=== PATIENT | female | born 2000 | race American Indian/Alaskan Native ===

== ENCOUNTER 2020-03-09 15:11 | Outpatient (CLI) | payer OTHER ==
[2020-03-09] MEDS ORDERED: LACTATED RINGERS 1,000 ML IV SCH (17:00)
--- NOTE | 2020-03-09 18:20 | Ultrasound Report ---
Limited OB ultrasound. HISTORY: Evaluate JOSE CARLOS. COMPARISON: 03/05/2020. FINDINGS: Limited obstetrical ultrasound was performed. A single viable intrauterine in the cephalic position has heart tones of 117 bpm. Amniotic fluid is now normal measuring 18.8 cm. IMPRESSION: Normal amniotic fluid index measuring 18.8 cm. Signer Name: Fermín Neumann MD Signed: 03/09/2020 6:15 PM Workstation Name: [id number]
[2020-03-09 19:07] VITALS: BP 108/63
== END 2020-03-09 18:30 | disposition home or self-care (01) ==
LOC: TRG 15:11 → APU 15:18 → TRG 18:30
PROVIDERS: ATTEND Obstetrics & Gynecology
DX: O26.893 Other specified pregnancy related conditions, third trimester (principal); R51 Headache; M54.9 Dorsalgia, unspecified; O47.1 False labor at or after 37 completed weeks of gestation; Z3A.39 39 weeks gestation of pregnancy
CPT/HCPCS: 59025; 76815; 96360; 96361; J7120

== ENCOUNTER 2020-03-19 19:39 | Observation (INO) | payer OTHER ==
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
[2020-03-19] MEDS ORDERED: LACTATED RINGERS 1,000 ML IV ONE (23:16)
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
--- NOTE | 2020-03-20 00:49 | Ultrasound Report ---
ULTRASOUND BIOPHYSICAL PROFILE INDICATION / CLINICAL INFORMATION: Limited study was requested to evaluate placenta and obtain BPP COMPARISON: Obstetrical ultrasound, 03/09/2020 FINDINGS: BREATHING MOVEMENT = 2 GROSS BODY MOVEMENT = 2 TONE = 2 QUALITATIVE AMNIOTIC FLUID VOLUME = 2 TOTAL BIOPHYSICAL SCORE = 03/05 AMNIOTIC FLUID INDEX (cm) = 9.0 PRESENTATION: Cephalic. HEART RATE (beats per minute): 137 The placenta is anterior. IMPRESSION: 1. biophysical profile = 03/05 Signer Name: Mary Naranjo MD Signed: 03/20/2020 12:45 AM Workstation Name: [id number]
[2020-03-20 01:02] LABS: Basophils % (Auto) 0.3 % (0.0-1.8); Eosinophils # (Auto) 0.2 K/mm3 (0.0-0.4); Eosinophils % (Auto) 1.9 % (0.0-4.3); Hematocrit 32.3 % (30.3-42.9); Hemoglobin 11.2 gm/dl (10.1-14.3); Lymphocytes # (Auto) 2.4 K/mm3 (1.2-5.4); Lymphocytes % (Auto) 26.4 % (13.4-35.0); Mean Corpuscular HGB Conc 35 % (30-34); Mean Corpuscular Volume 84 fl (79-97); Monocytes # (Auto) 0.8 K/mm3 (0.0-0.8); Monocytes % (Auto) 8.6 % (0.0-7.3); Platelet Count 183 K/mm3 (140-440); Red Blood Count 3.86 M/mm3 (3.65-5.03); Red Cell Distribution Width 14.6 % (13.2-15.2)
[2020-03-20 01:26] LABS: Hepatitis C Virus Antibody Non-Reactive (NonReactive)
[2020-03-20 01:34] LABS: Amphetamine Screen,Urine PRESUMPTIVE NEGATIVE; Benzodiazepines Screen,Urine PRESUMPTIVE NEGATIVE; Cannabinoid Screen,Urine PRESUMPTIVE NEGATIVE; Cocaine Screen,Urine PRESUMPTIVE NEGATIVE; Methadone Screen,Urine PRESUMPTIVE NEGATIVE; Opiate Screen,Urine PRESUMPTIVE NEGATIVE
[2020-03-20 01:41] LABS: HCG,Quantitative 25554 mIU/mL (0-4)
[2020-03-20 01:45] LABS: Bacteria,Urine 1+ /HPF (Negative); Bilirubin,Urine NEG (Negative); Blood,Urine NEG (Negative); Color,Urine Straw (Yellow); Protein,Urine <15 mg/dL mg/dL (Negative); Urobilinogen,Urine < 2.0 mg/dL (<2.0)
[2020-03-20] MEDS ORDERED: LACTATED RINGERS 1,000 ML ONE (05:24)
[2020-03-20] MEDS ORDERED: LACTATED RINGERS 1,000 ML IV SCH (06:00)
--- NOTE | 2020-03-20 08:23 | Event Note ---
Date: 03/20/20 No cervical change; patient is not in active labor at this time. Category 1 FHR tracing. BPP 03/05. JOSE CARLOS 9.[address] Salamanca re: no cervical change, BPP 03/05, results of US, category [address] Salamanca states to discharge patient to home and have her return tomorrow at 5:00 PM for induction of labor. Discussed with this plan with patient and she states she is in agreement. Discussed with patient signs of labor, warning signs of late , and daily movement counting.
--- NOTE | 2020-03-20 08:27 | Discharge Summary ---
Providers - Providers Date of Admission: 03/20/20 03:30 Date of discharge: 03/20/20 Attending physician: CRISTOFER BROWER MD Primary care physician: CRISTOFRE BROWER MD Hospitalization Reason for admission: other ( at 41 weeks gestation.) Delivery: other (Undelivered.) Pertinent studies: Labs, US, EFM. Hospital course: Stable hospital course. Condition at discharge: Good Disposition: DC-01 TO HOME OR SELFCARE Plan - Provider Discharge Summary Additional instructions: Count movements daily; return to hospital if any decresed movements. Call your doctor immediately for: * Fever > 100.5 * Heavy vaginal bleeding ( >1 pad per hour) * Severe persistent headache * Shortness of breath * Reddened, hot, painful area to leg or breast - Follow up plan Follow up: IDRIS FOLEY MD [Staff Physician] - 03/21/20
[2020-03-20 08:32] VITALS: BP 106/68
[2020-03-20] MEDS ORDERED: PRENATAL VIT27-FE FUMARATE-FOLIC ACID VIT TAB PO SCH (10:00)
== END 2020-03-20 09:36 | disposition home or self-care (01) ==
LOC: TRG 19:39 → APU 19:40 → TRG 03-20 03:24 → LD 03-20 03:30
PROVIDERS: ADMIT Obstetrics & Gynecology; ATTEND Obstetrics & Gynecology
DX: O62.9 Abnormality of forces of labor, unspecified (principal); O36.8130 Decreased fetal movements, third trimester, not applicable or unspecified; O48.0 Post-term pregnancy; Z87.828 Personal history of other (healed) physical injury and trauma; Z3A.41 41 weeks gestation of pregnancy
CPT/HCPCS: 36415; 59025; 76815; 76819; 80307; 81001; 83036; 84702; 85025; 86592; 86706; 86762; 86803; 86850; 86900; 86901; 87086; 87806; 96360; 96361; G0378; J7120; 76816

== ENCOUNTER 2020-03-22 13:03 | Inpatient (IN) | payer OTHER ==
[2020-03-22] MEDS ORDERED: LACTATED RINGERS 1,000 ML ONE ×2 (13:45→15:38)
[2020-03-22 14:46] LABS: Basophils % (Auto) 0.2 % (0.0-1.8); Eosinophils # (Auto) 0.1 K/mm3 (0.0-0.4); Eosinophils % (Auto) 0.8 % (0.0-4.3); Hematocrit 33.1 % (30.3-42.9); Lymphocytes # (Auto) 1.1 K/mm3 (1.2-5.4); Lymphocytes % (Auto) 11.8 % (13.4-35.0); Mean Corpuscular HGB Conc 33 % (30-34); Mean Corpuscular Volume 84 fl (79-97); Monocytes # (Auto) 0.6 K/mm3 (0.0-0.8); Monocytes % (Auto) 6.6 % (0.0-7.3); Platelet Count 182 K/mm3 (140-440); Red Blood Count 3.95 M/mm3 (3.65-5.03); Red Cell Distribution Width 14.3 % (13.2-15.2)
[2020-03-22] MEDS ORDERED: MINERAL OIL 30 ML ORAL LIQD PO PRN (15:52)
[2020-03-22] MEDS ORDERED: BUTORPHANOL 2 MG/1 ML INJ IV PRN (15:52)
[2020-03-22] MEDS ORDERED: TERBUTALINE 1 MG/1 ML INJ IVP PRN (15:52)
[2020-03-22] MEDS ORDERED: fentaNYL 100 MCG/2 ML INJ IV PRN (15:52)
[2020-03-22] MEDS ORDERED: ePHEDrine SULFATE 50 MG/1 ML INJ IV PRN ×2 (15:52→17:12)
[2020-03-22] MEDS ORDERED: ACETAMINOPHEN 325 MG TAB PO PRN (15:52)
[2020-03-22] MEDS ORDERED: AMPICILLIN/NS 2 GM/100 ML 2 GM/100 ML BAG IV ONE (15:52)
[2020-03-22] MEDS ORDERED: TERBUTALINE 1 MG/1 ML INJ SUB-Q PRN (15:52)
[2020-03-22] MEDS ORDERED: LIDOCAINE (2%) 20 MG/1 ML VIAL 20 ML MDV INFILTRATI ONE (15:52)
[2020-03-22] MEDS ORDERED: OXYTOCIN 20 UNIT/1000ML DRIP 20 UNITS/1,000 ML BAG IV SCH (16:00)
[2020-03-22] MEDS: LACTATED RINGERS 1,000 ML IV SCH ×2 (16:00→16:58)
[2020-03-22] MEDS ORDERED: OXYTOCIN DRIP 30 UNITS/500 ML BAG IV SCH ×2 (16:00)
[2020-03-22] MEDS ORDERED: NALOXONE 2 MG/2 ML INJ IV PRN (17:12)
--- NOTE | 2020-03-22 17:13 | Anesthesia Consultation ---
Anesthesia Consult and Med Hx Date of service: 03/22/20 - Airway Anesthetic Teeth Evaluation: Good ROM Head & Neck: Adequate Mental/Hyoid Distance: Adequate Mallampati Class: Class II Intubation Access Assessment: Probably Good - Pulmonary Exam CTA: Yes - Cardiac Exam Cardiac Exam: RRR - Pre-Operative Health Status ASA Pre-Surgery Classification: ASA3 Proposed Anesthetic Plan: Epidural - Pulmonary Hx Smoking: Yes Hx Asthma: No COPD: No Hx Pneumonia: No - Cardiovascular System Hx Hypertension: No - Central Nervous System Hx Seizures: No Hx Psychiatric Problems: No - Endocrine Hx Renal Disease: No Hx End Stage Renal Disease: No Hx Hypothyroidism: No Hx Hyperthyroidism: No - Hematic Hx Anemia: No Hx Sickle Cell Disease: No - Other Systems Hx Alcohol Use: No Hx Obesity: Yes
--- NOTE | 2020-03-22 17:15 | Progress Note ---
Labor Epidural - Labor Epidural Start Time: 16:45 Stop Time: 17:02 Performed by:: LESLI ARELLANO Procedure: Patient is requesting epidural for labor pain. H&P, and labs reviewed. Procedure explained, questions answered, consent obtained. Patient in sitting position with blood pressure cuff and pulse ox on and working. Timeout performed immediately before start of procedure. Sterile betadine prep/drape. 3 mL 1% lidocaine skin wheal at L[3]-L[4]. 18-gauge Touhy epidural needle advanced to [id number] with saline at 10 cm. Epidural dexmedetomidine [30] mcg administered. Epidural catheter advanced to 15 cm, negative aspiration for blood and csf, negative test dose 3 ml 1.5% lidocaine with epinephrine. Sterile steri-strips and tegaderm applied, followed by tape reinforcement. Patient tolerated procedure well.
[2020-03-22] MEDS ORDERED: AMPICILLIN/NS 1 GM/50 ML 1 GM/50 ML BAG IV SCH (18:00)
[2020-03-22] MEDS ORDERED: DEXMEDETOMIDINE 200 MCG/2 ML VIAL IV ONE (19:48)
[2020-03-22] MEDS ORDERED: AMPICILLIN 1 GM in SODIUM CHLORIDE 0.9% 50 ML IV SCH (20:00)
--- NOTE | 2020-03-22 20:12 | Anesthesia Consultation ---
Anesthesia Consult and Med Hx Date of service: 03/22/20 - Airway Anesthetic Teeth Evaluation: Good ROM Head & Neck: Adequate Mental/Hyoid Distance: Adequate Mallampati Class: Class II Intubation Access Assessment: Probably Good - Pulmonary Exam CTA: Yes - Cardiac Exam Cardiac Exam: RRR - Pre-Operative Health Status ASA Pre-Surgery Classification: ASA2 Proposed Anesthetic Plan: Epidural - Pulmonary Hx Smoking: No Hx Asthma: No COPD: No Hx Pneumonia: No - Cardiovascular System Hx Hypertension: No - Central Nervous System Hx Seizures: No Hx Psychiatric Problems: No - Endocrine Hx Renal Disease: No Hx End Stage Renal Disease: No Hx Hypothyroidism: No Hx Hyperthyroidism: No - Hematic Hx Anemia: No Hx Sickle Cell Disease: No - Other Systems Hx Alcohol Use: No Hx Obesity: No
--- NOTE | 2020-03-22 20:13 | Progress Note ---
Labor Epidural - Labor Epidural Start Time: 19:49 Stop Time: 20:04 Performed by:: LESLI ARELLANO Procedure: Patient is requesting epidural for labor pain. H&P, and labs reviewed. Procedure explained, questions answered, consent obtained. Patient in sitting position with blood pressure cuff and pulse ox on and working. Timeout performed immediately before start of procedure. Sterile betadine prep/drape. 3 mL 1% lidocaine skin wheal at L[3]-L[4]. 18-gauge Touhy epidural needle advanced to [id number] with saline at 5 cm. 27-gauge spinal needle advanced until clear, free-flowing CSF. Intrathecal dexmedetomidine [5] mcg administered and needle removed. Epidural catheter advanced to [12] cm, negative aspiration for blood and csf, negative test dose 3 ml 1.5% lidocaine with epinephrine. Sterile steri-strips and tegaderm applied, followed by tape reinforcement. Patient tolerated procedure well. Jason CLAY
[2020-03-22] MEDS: fentaNYL-BUPIV 2 MCG/ML-0.125% 200 MCG/100 ML BAG EPIDURAL SCH (20:29)
[2020-03-22] MEDS ORDERED: BUPIVACAINE/PF (0.25%) 2.5 MG/ML 10 ML VIAL INFILTRATI ONE (23:01)
[2020-03-23] MEDS ORDERED: AMPICILLIN/NS 1 GM/50 ML 1 GM/50 ML BAG IV SCH (03:00)
[2020-03-23] MEDS: LACTATED RINGERS 1,000 ML IV SCH (08:06)
--- NOTE | 2020-03-23 08:10 | History and Physical Report ---
History of Present Illness Date of admission: 03/22/20 13:06 Chief complaint: at 41 2/7 weeks EGA for IOL History of present illness: 19 y/o G1 today at 41 2/7 weeks with late and sporadic care admitted for IOL. There are no records for me to review. Past History Past Medical History: No medical history Past Surgical History: No surgical history Social history: no significant social history Family history: no significant family history Medications and Allergies Allergies Allergy/AdvReac Type Severity Reaction Status Date / Time No Known Allergies Allergy Verified 03/09/20 16:06 Home Medications Medication Instructions Recorded Confirmed Last Taken Type Vit-Fe Fumar-FA [ 1 tab PO QDAY 03/22/20 03/22/20 Unknown History Vitamin] Active Meds: Active Medications Acetaminophen (Tylenol) 650 mg PO Q4H PRN PRN Reason: Pain, Mild (1-3) Butorphanol Tartrate (Stadol) 1 mg IV Q2H PRN PRN Reason: Pain, Moderate(4-6) LABOR PAIN Ephedrine Sulfate (Ephedrine Sulfate) 10 mg IV Q2M PRN PRN Reason: Hypotension Ephedrine Sulfate (Ephedrine Sulfate) 10 mg IV Q2M PRN PRN Reason: Hypotension Fentanyl (Sublimaze) 100 mcg IV Q2H PRN PRN Reason: Pain,Severe (7-10) LABOR PAIN Last Admin: 03/22/20 16:05 Dose: 100 mcg Documented by: Oxytocin/Sodium Chloride (Pitocin/Ns 20 Unit/1000ml Drip) 20 units in 1,000 mls @ 125 mls/hr IV DIRECT MI Oxytocin/Sodium Chloride (Pitocin/Ns 30 Unit/500ml) 30 units in 500 mls @ 1 mls/hr IV TITR MI; Protocol Oxytocin/Sodium Chloride (Pitocin/Ns 30 Unit/500ml) 30 units in 500 mls @ 2 mls/hr IV TITR MI; Protocol Last Admin: 03/22/20 22:14 Dose: 2 ml/hr, 2 mls/hr Documented by: Lactated Ringer's (Lactated Ringers) 1,000 mls @ 125 mls/hr IV DIRECT MI Last Admin: 03/22/20 16:58 Dose: 125 mls/hr Documented by: Fentanyl/Bupivacaine/Sodium Chlor (Fentanyl-Bupiv 2 Mcg/Ml-0.125%) 200 mcg in 100 mls @ 12 mls/hr EPIDURAL TITR MI; Protocol Last Admin: 03/22/20 20:29 Dose: 12 mls/hr Documented by: Ampicillin Sodium (Ampicillin/Ns 1 Gm/50 Ml) 1 gm in 50 mls @ 100 mls/hr IV Q4HR MI; Protocol Mineral Oil (Mineral Oil) 30 ml PO QHS PRN PRN Reason: Constipation Naloxone HCl (Naloxone) 0.2 mg IV Q5M PRN PRN Reason: Respiratory sedation Terbutaline Sulfate (Brethine) 0.25 mg SUB-Q ONCE PRN PRN Reason: Hyperstimulation/Hypertonicity Terbutaline Sulfate (Brethine) 0.25 mg IVP ONCE PRN PRN Reason: Hyperstimulation/Hypertonicity Review of Systems All systems: negative (usual symptoms) Exam - Constitutional Vitals: Temp Pulse Resp BP Pulse Ox 98.3 F 80 98/55 03/23/20 04:31 03/23/20 06:31 03/23/20 06:31 General appearance: Present: mild distress - Respiratory Respiratory effort: normal - Cardiovascular Heart rate: 80 Rhythm: regular - Extremities Extremities: No edema - Abdominal General gastrointestinal: Present: soft, non-tender - Psychiatric Psychiatric: appropriate mood/affect - Neurologic Neurologic: moves all extremities, gait normal (Cervix was 2 cm/ 50 VTX -2 station per nurse exam on admission) Results - Labs CBC & Chem 7: 03/22/20 14:20 Labs: Abnormal lab results 03/22/20 Range/Units 14:20 Lymph % (Auto) 11.8 L (13.4-35.0) % Lymph # 1.1 L (1.2-5.4) K/mm3 Seg Neutrophils % 80.6 H (40.0-70.0) % Assessment and Plan IMP: 1) 41 2/7 weeks in early labor 2) Poor compliance with care 3) Otherwise uncomplicated course 4) positive GBS PLAN: Anticipate vaginal delivery Ampicillin for +GBS
[2020-03-23] MEDS: AMPICILLIN/NS 1 GM/50 ML 1 GM/50 ML BAG IV SCH ×3 (08:13→16:13)
[2020-03-23] MEDS ORDERED: ONDANSETRON 4 MG/2 ML INJ ONE (09:24)
[2020-03-23] MEDS ORDERED: ONDANSETRON 4 MG/2 ML INJ IM ONE (09:27)
[2020-03-23] MEDS ORDERED: BUPIVACAINE/PF (0.25%) 2.5 MG/ML 10 ML VIAL INFILTRATI ONE ×3 (09:36→19:06)
--- NOTE | 2020-03-23 09:41 | Progress Note ---
Assessment and Plan A: IUP @ 41 4/7 Weeks Category I Tracing Active Labor Poor Pain Control Vomiting GBS Unknown P: Consult Anesthesia for Epiduiral ReDose Zofran 4mg IV Continue GBS Prophylaxis Continue Pitocin Augmentation Multiple Maternal Position Changes Subjective - Subjective Date of service: 03/23/20 Patient reports: movement normal, contractions, other (Complains of poor pain control under epidural anesthesia) Objective - Vital Signs Vital Signs: Vital Signs - 12hr 03/22/20 03/22/20 03/22/20 21:50 22:30 23:11 Temperature Pulse Rate 68 78 71 Blood Pressure 102/51 101/65 114/73 03/22/20 03/23/20 03/23/20 23:50 00:30 00:45 Temperature 98.3 F Pulse Rate 78 67 Blood Pressure 99/57 97/60 03/23/20 03/23/20 03/23/20 01:10 01:50 02:10 Temperature Pulse Rate 74 85 73 Blood Pressure 102/62 89/53 105/59 03/23/20 03/23/20 03/23/20 02:31 03:10 03:51 Temperature Pulse Rate 90 84 76 Blood Pressure 99/58 111/65 113/65 03/23/20 03/23/20 03/23/20 04:30 04:31 05:10 Temperature 98.3 F Pulse Rate 63 72 Blood Pressure 108/57 106/61 03/23/20 03/23/20 03/23/20 05:50 06:31 08:30 Temperature Pulse Rate 92 H 80 107 H Blood Pressure 98/52 98/55 115/75 - Exam Breasts: normal Cardiovascular: Regular rate Lungs: Normal air movement Abdomen: Present: normal appearance, soft Uterus: Present: normal, firm, fundal height above umbilicus FHR: category 1 Uterine Contraction Monitor Mode: External Cervical Dilatation: 8 (leaking a moderate amount of clear fluid) Cervical Effacement Percentage: 80 station: -3 Uterine Contraction Frequency (min): 1-2 Uterine Contraction Pattern: Regular Uterine Tone Measurement Phase: Resting Uterine Contraction Intensity: Moderate Extremities: normal - Labs Labs: Abnormal Labs 03/22/20 14:20 Lymph % (Auto) 11.8 L Lymph # 1.1 L Seg Neutrophils % 80.6 H Laboratory Results - last 24 hr 03/22/20 03/22/20 14:20 14:20 WBC 9.3 RBC 3.95 Hgb 11.0 Hct 33.1 MCV 84 MCH 28 MCHC 33 RDW 14.3 Plt Count 182 Lymph % (Auto) 11.8 L [place] % (Auto) 6.6 Eos % (Auto) 0.8 Baso % (Auto) 0.2 Lymph # 1.1 L [place] # 0.6 Eos # 0.1 Baso # 0.0 Seg Neutrophils % 80.6 H Seg Neutrophils # 7.5 Blood Type O POSITIVE Antibody Screen Negative
[2020-03-23] MEDS: fentaNYL-BUPIV 2 MCG/ML-0.125% 200 MCG/100 ML BAG EPIDURAL SCH (11:07)
--- NOTE | 2020-03-23 13:21 | Progress Note ---
Assessment and Plan A: IUP @ 41 4/7 Weeks Category II Tracing Active Labor GBS Unknown P: Internalx x2 Continue GBS Prophylaxis Pitocin Augmentation Discontinued Multiple Maternal Position Changes Subjective - Subjective Date of service: 03/23/20 Patient reports: movement normal, other (Resting comfortably/well under epidural anesthesia) Objective - Vital Signs Vital Signs: Vital Signs - 12hr 03/23/20 03/23/20 03/23/20 01:50 02:10 02:31 Temperature Pulse Rate 85 73 90 Blood Pressure 89/53 105/59 99/58 03/23/20 03/23/20 03/23/20 03:10 03:51 04:30 Temperature Pulse Rate 84 76 63 Blood Pressure 111/65 113/65 108/57 03/23/20 03/23/20 03/23/20 04:31 05:10 05:50 Temperature 98.3 F Pulse Rate 72 92 H Blood Pressure 106/61 98/52 03/23/20 03/23/20 03/23/20 06:31 08:30 09:46 Temperature Pulse Rate 80 107 H 93 H Blood Pressure 98/55 115/75 119/70 03/23/20 03/23/20 03/23/20 09:50 10:02 10:31 Temperature 98.6 F Pulse Rate 97 H 77 Blood Pressure 116/80 117/74 03/23/20 03/23/20 03/23/20 11:10 11:51 11:58 Temperature Pulse Rate 91 H 81 74 Blood Pressure 113/75 116/71 120/77 03/23/20 03/23/20 03/23/20 12:00 12:05 12:07 Temperature 98.2 F Pulse Rate 72 67 67 Blood Pressure 115/67 108/66 03/23/20 03/23/20 03/23/20 12:14 12:20 12:38 Temperature Pulse Rate 73 75 81 Blood Pressure 120/78 120/81 112/68 03/23/20 03/23/20 12:53 13:11 Temperature Pulse Rate 87 80 Blood Pressure 113/70 96/54 - Exam Breasts: normal Cardiovascular: Regular rate Lungs: Normal air movement Abdomen: Present: normal appearance, soft FHR: category 2 FHR comments: FHR: 120, moderate varability, -accels, +repetitive early decels Uterine Contraction Monitor Mode: Internal Cervical Dilatation: 9 Cervical Effacement Percentage: 100 station: -1 Uterine Contraction Frequency (min): 1-3 Uterine Contraction Pattern: Regular Uterine Tone Measurement Phase: Resting Uterine Contraction Intensity: Moderate Extremities: normal - Labs Labs: Abnormal Labs 03/22/20 14:20 Lymph % (Auto) 11.8 L Lymph # 1.1 L Seg Neutrophils % 80.6 H Laboratory Results - last 24 hr 03/22/20 03/22/20 14:20 14:20 WBC 9.3 RBC 3.95 Hgb 11.0 Hct 33.1 MCV 84 MCH 28 MCHC 33 RDW 14.3 Plt Count 182 Lymph % (Auto) 11.8 L [place] % (Auto) 6.6 Eos % (Auto) 0.8 Baso % (Auto) 0.2 Lymph # 1.1 L [place] # 0.6 Eos # 0.1 Baso # 0.0 Seg Neutrophils % 80.6 H Seg Neutrophils # 7.5 Blood Type O POSITIVE Antibody Screen Negative
[2020-03-23] MEDS ORDERED: SODIUM CHLORIDE 0.9% 1000 ML 1,000 ML VG SCH (14:00)
[2020-03-23] MEDS ORDERED: LACTATED RINGERS 1,000 ML ONE (15:01)
[2020-03-23] MEDS ORDERED: LIDOCAINE (2%) 20 MG/1 ML VIAL 20 ML MDV INFILTRATI ONE (17:56)
[2020-03-23] MEDS ORDERED: FAMOTIDINE 20 MG/2 ML INJ IV ONE ×2 (18:38→22:22)
[2020-03-23] MEDS ORDERED: METOCLOPRAMIDE 10 MG/2 ML INJ IV ONE ×2 (18:38→22:22)
[2020-03-23] MEDS ORDERED: BICITRA ORAL LIQD 30ML PO ONE ×2 (18:38→22:22)
--- NOTE | 2020-03-23 18:58 | Event Note ---
Date: 03/23/20 Pt has been completely dilated for 3 hrs. FHTs have remained reactive and reassuring. Vacuum applied x3 with minimal descent of vertex which remained in straight occiput posterior position, +2-3 station. Midline episiotomy was performed after second vacuum application. PLAN: now
[2020-03-23] MEDS ORDERED: ceFAZolin/Water 2 GM/20 ML 2 GM/20 ML SYRINGE IV NR (19:00)
[2020-03-23] MEDS ORDERED: LACTATED RINGERS 1,000 ML IV SCH ×2 (19:00→23:00)
[2020-03-23] MEDS ORDERED: OXYTOCIN 20 UNIT/1000ML DRIP 20 UNITS/1,000 ML BAG IV SCH ×2 (19:00→23:00)
[2020-03-23] MEDS ORDERED: BUPIVACAINE/PF (0.5%) 5 MG/1 ML 10 ML VIAL INFILTRATI ONE (19:09)
[2020-03-23] MEDS ORDERED: ceFAZolin/STERILE WATER 2 GM/20 ML SYRINGE IV ONE (19:20)
[2020-03-23] MEDS ORDERED: KETOROLAC 30 MG/1 ML INJ IV PRN (19:46)
[2020-03-23] MEDS ORDERED: oxyCODONE /ACETAMINOPHEN 5-325MG TAB PO PRN ×2 (19:46)
[2020-03-23] MEDS ORDERED: NalbUPHINE 10 MG/1 ML INJ IV PRN (19:46)
[2020-03-23] MEDS ORDERED: MORPHINE 2 MG/1 ML INJ IV PRN (19:47)
[2020-03-23] MEDS ORDERED: ONDANSETRON 4 MG/2 ML INJ IV PRN ×2 (19:48→22:22)
[2020-03-23] MEDS ORDERED: KETAMINE/STERILE WATER 50 MG/ML SYRINGE ONE (19:54)
[2020-03-23] MEDS ORDERED: propofoL 200 MG/20 ML VIAL IV ONE (19:55)
[2020-03-23] MEDS ORDERED: MIDAZOLAM 5 MG/5 ML INJ MDV IV ONE (19:57)
[2020-03-23] MEDS ORDERED: LIDOCAINE 2%/EPINEPHRINE 1:200,000 VIAL (20 ML) INFILTRATI ONE (19:59)
[2020-03-23] MEDS ORDERED: KETOROLAC 30 MG/1 ML INJ ONE (20:00)
[2020-03-23] MEDS ORDERED: ACETAMINOPHEN 500 MG TAB PO SCH (20:00)
[2020-03-23] MEDS ORDERED: dexAMETHasone 20 MG/5 ML VIAL ONE (20:10)
[2020-03-23] MEDS ORDERED: BUPIVACAINE/PF (0.5%) 5 MG/1 ML 30 ML VIAL INFILTRATI ONE (20:10)
[2020-03-23 20:27] LABS: Cord Venous Blood HCO3 21.2; Cord Venous Oxyhemoglobin 20.5
[2020-03-23 20:31] LABS: Cord Venous Blood PO2 < 21
--- NOTE | 2020-03-23 21:11 | Post Anesthesia Evaluation ---
- Post Anesthesia Evaluation Patient Participated: Yes Airway Patent: Yes Stable Respiratory Function: Yes Nausea/Vomiting: No Temp > 96.8F: Yes Pain Manageable: Yes Adequeate Hydration: Yes Anesthesia Complications: No Block Receding Appropriately: Yes
--- NOTE | 2020-03-23 21:12 | Progress Note ---
Regional Anesthesia Block - Regional Anesthesia Block Start Time: 21:11 Stop Time: 21:20 Performed By:: LESLI ARELLANO Procedure: U/S guided bilateral tap block performed for post-operative pain requested by Dr. Salamanca. H&P & labs reviewed. Procedure explained, questions answered, consent obtained. Patient in the supine position with ekg, blood pressure cuff and pulse ox on and working in PACU. Timeout performed immediately before start of procedure. Probe placed in the mid-axillary line and the external oblique, internal oblique, and transverse abdominus muscles identified. Skin was cleansed with 0.5% Chlorahexadine and allowed to dry. A 4" 20 G Benjamin echogenic needle was advanced in plane until the tip was in the fascial plane between the internal oblique and the transverse abdominus. After negative aspiration 35 ml/side of [30 ml 0.5% Bupivacaine], [50 mcg dexmedetomidine], [8 mg dexamethasone], and [40 ml sterile saline] was injected in 5 ml increments with negative aspiration in between. Patient tolerated procedure well. Jason CLAY
[2020-03-23] MEDS ORDERED: oxyCODONE 5 MG TAB PO PRN ×2 (21:27)
--- NOTE | 2020-03-23 22:19 | Operative Report ---
Operative Report Operative Report: Pre-Op Dx: 1) at 41 2/7 weeks 2) Persistent occiput posterior 3) Failure of Descent 4) Failed vacuum delivery Post-Op Dx: same Procedure: Primary Lower Segment Transverse Surgeon: Rajat Salamanca MD Jewel Stripper: OR staff Anesthesia: Epidural Tubes/Drains: Jolly EBL: 500 ml Findings: Female infant-- occiput posterior--3502 grams APGARS: Thin non-particulate meconium Venous Cord pH= 7.17 Operative note The patient was taken to the operating room where the epidural anesthetic was reinjected to obtain a satisfactory level for Section. The patient was then placed in the supine position and prepped and draped in the usual fashion. The skin and subcutaneous tissue at the site of the proposed Pfannenstiel skin incision were injected using approximately 10 mL of 0.25% Marcaine. At this site a Pfannenstiel incision was made approximately 5 cm above the symphysis pubis. This incision was carried through the subcutaneous tissue and fascia. The fascia was from the underlying abdominal muscles using both sharp and blunt dissection. The rectus muscles were divided in the midline and the peritoneum was exposed. Peritoneum was incised transversely and the abdominal cavity was entered without difficulty. After a bladder retractor was inserted the lower uterine segment was exposed. The vesicouterine peritoneum was incised transversely and the bladder was from the lower uterine segment using blunt dissection. A 4 cm transverse incision was made in the lower uterine segment. This incision was carried laterally and upward using blunt dissection. The amniotic membranes were then incised and non-particulate meconium stained fluid was noted. The infant's head was then lifted up out of the pelvis and was delivered into the uterine incision using the vacuum extractor which was applied for exactly 18 seconds. After the mouth and nose were thoroughly suctioned using the bulb suction the remainder of the delivery occurred without difficulty. After the umbilical cord was doubly clamped and cut the infant was handed to the nursery staff. scores were 1 at 1 minute, 4 at 5 minutes, and 7 at 10 minutes. Cord blood was then obtained for routine laboratory studies and pH. The pH was subsequently reported as 7.17. Next the placenta was expressed from the uterine cavity. The placenta and umbilical cord were both grossly normal. Both visual and digital inspection of the uterine cavity revealed no evidence of retained placenta or membranes. After the uterus had contracted in a satisfactory manner the uterine incision was closed in 2 layers. Both layers were running locking stitches of 0 Vicryl. After adequate hemostasis was obtained the pelvis was irrigated with sterile normal saline. Examination of the pelvis then revealed the uterus fallopian tubes ovaries and all visible peritoneal surfaces to be grossly normal. After absolute hemostasis was again assured the peritoneum was closed using a running stitch of 2-0 Vicryl. The rectus muscles were reapproximated in the midline using a running stitch of 2-0 chromic catgut. The cut edges of the rectus muscle which were partially transected to enlarge the operative field were reapproximated using figure of 8 stitches of 2-0 chromic. The fascia was reapproximated using 2 running stitches of 0 Vicryl which met in the midline. The subcutaneous tissue was thoroughly irrigated using sterile normal saline and was reapproximated using a running stitch of 3-0 chromic catgut. The skin was reapproximated using skin caleb. The estimated blood loss of the procedure was 500 mL. Sponge needle and instrument counts were correct. The patient tolerated the procedure well and was returned to the recovery room awake and in good condition.
[2020-03-23] MEDS ORDERED: NALOXONE 0.4 MG/1 ML INJ IV PRN (22:22)
[2020-03-23] MEDS ORDERED: PROMETHAZINE 25 MG RECT SUPP PR PRN (22:22)
[2020-03-23] MEDS ORDERED: PROMETHAZINE 25 MG TAB PO PRN (22:22)
[2020-03-23] MEDS: MORPHINE 4 MG/1 ML INJ IV PRN (22:33)
[2020-03-23] MEDS ORDERED: fentaNYL-BUPIV 2 MCG/ML-0.125% 200 MCG/100 ML BAG EPIDURAL SCH (23:00)
[2020-03-23] MEDS: IBUPROFEN 600 MG TAB PO SCH (23:54)
[2020-03-24] MEDS: MORPHINE 4 MG/1 ML INJ IV PRN (03:10)
[2020-03-24 04:41] LABS: Hematocrit 27.8 % (30.3-42.9); Hemoglobin 9.1 gm/dl (10.1-14.3); Mean Corpuscular HGB Conc 33 % (30-34); Mean Corpuscular Volume 84 fl (79-97); Platelet Count 180 K/mm3 (140-440); Red Cell Distribution Width 14.5 % (13.2-15.2)
[2020-03-24] MEDS: KETOROLAC 30 MG/1 ML INJ IV SCH ×3 (05:45→12:25)
[2020-03-24] MEDS: IBUPROFEN 600 MG TAB PO SCH ×3 (05:46→23:20)
[2020-03-24] MEDS ORDERED: WITCH HAZEL/ GLYCERIN PAD TP PRN (06:16)
[2020-03-24 06:51] LABS: Total Cells Counted 100
[2020-03-24 06:52] LABS: Basophils % (Manual) 0 % (0.0-1.8); Eosinophils % (Manual) 0 % (0.0-4.3); Platelet Estimate Consistent w Auto
[2020-03-24] MEDS ORDERED: IRON DEXTRAN COMPLEX 100 MG/2 ML INJ IM ONE ×2 (11:47→22:00)
--- NOTE | 2020-03-24 12:27 | Progress Note ---
Assessment and Plan A: POD #1 Asymptomatic Anemia P: Follow Routine PostOp Orders Infed 100mg IM x 1 dose Subjective - Subjective Date of service: 03/24/20 Patient reports: appetite normal, voiding normally, pain well controlled, flatus, ambulating normally [place]: doing well, bottle feeding Objective - Vital Signs Latest vital signs: Vital Signs Temp Pulse Resp BP Pulse Ox 03/24/20 07:43 98.0 F 78 16 110/74 98 03/24/20 06:30 18 03/24/20 06:00 18 03/24/20 05:56 98.0 F 93 H 18 117/87 98 03/24/20 03:40 18 03/24/20 03:10 18 03/23/20 23:02 98.0 F 101 H 20 133/88 98 03/23/20 22:40 107 H 16 126/85 100 03/23/20 22:30 102 H 15 138/89 100 03/23/20 22:15 116 H 19 135/95 100 03/23/20 22:00 116 H 12 143/97 100 03/23/20 21:45 118 H 20 136/94 100 03/23/20 21:30 124 H 9 L 141/96 100 03/23/20 21:15 116 H 20 128/88 100 03/23/20 21:09 116 H 21 130/86 100 03/23/20 21:07 98.8 F 118 H 22 129/84 100 03/23/20 19:05 125 H 102/74 03/23/20 18:24 115 H 110/68 03/23/20 18:09 85 121/72 03/23/20 17:53 90 130/63 03/23/20 17:08 131 H 142/84 03/23/20 16:39 97 H 151/67 03/23/20 16:11 82 118/59 03/23/20 15:55 76 113/71 03/23/20 15:39 78 116/59 03/23/20 15:08 68 112/70 03/23/20 14:54 72 116/73 03/23/20 14:39 75 121/78 03/23/20 14:25 73 113/80 03/23/20 14:08 82 110/65 03/23/20 13:53 81 113/68 03/23/20 13:38 79 111/67 03/23/20 13:24 83 111/67 03/23/20 13:11 80 96/54 03/23/20 12:53 87 113/70 03/23/20 12:38 81 112/68 Intake and Output 03/23/20 03/24/20 03/24/20 22:59 06:59 14:59 Intake Total 2000 120 120 Output Total 500 1000 300 Balance 1500 -880 -180 Intake: IV 2000 Oral 120 120 Output: Urine 500 1000 300 Indwelling Catheter 1000 300 Other: Total, Intake Amount 120 120 Total, Output Amount 1000 300 Estimated Blood Loss 500 - Exam Breasts: Present: normal Cardiovascular: Present: Regular rate Lungs: Present: Clear to auscultation, Normal air movement Abdomen: Present: normal appearance, soft, normal bowel sounds Uterus: Present: normal, firm, fundal height below umbilicus Extremities: Present: normal Incision: Present: normal, dry, intact - Labs Labs: Abnormal lab results 03/24/20 Range/Units 04:03 WBC 21.4 H (4.5-11.0) K/mm3 RBC 3.30 L (3.65-5.03) M/mm3 Hgb 9.1 L (10.1-14.3) gm/dl Hct 27.8 L (30.3-42.9) % Seg Neuts % (Manual) 94.0 H (40.0-70.0) % Lymphocytes % (Manual) 3.0 L (13.4-35.0) % Seg Neutrophils # Man 20.1 H (1.8-7.7) K/mm3 Lymphocytes # (Manual) 0.6 L (1.2-5.4) K/mm3
[2020-03-24 18:26] LABS: Amphetamine Screen,Urine PRESUMPTIVE NEGATIVE; Benzodiazepines Screen,Urine PRESUMPTIVE POSITIVE; Cannabinoid Screen,Urine PRESUMPTIVE NEGATIVE; Cocaine Screen,Urine PRESUMPTIVE NEGATIVE; Methadone Screen,Urine PRESUMPTIVE NEGATIVE; Opiate Screen,Urine PRESUMPTIVE NEGATIVE
[2020-03-25] MEDS: IBUPROFEN 600 MG TAB PO SCH ×2 (05:05→16:50)
--- NOTE | 2020-03-25 08:30 | Progress Note ---
Assessment and Plan A: POD # 2 - stable P: Discharge home today F/U in office in 1-2 weeks Subjective - Subjective Date of service: 03/25/20 Patient reports: appetite normal [place]: doing well Objective - Vital Signs Latest vital signs: Vital Signs Temp Pulse Resp BP Pulse Ox 03/24/20 23:55 68 20 03/24/20 23:51 98.9 F 20 115/67 03/24/20 23:20 18 03/24/20 16:55 20 03/24/20 16:10 98.2 F 98 H 20 107/71 100 03/24/20 12:25 20 03/24/20 11:59 98.2 F 83 20 108/72 100 Intake and Output 03/24/20 03/25/20 03/25/20 22:59 06:59 14:59 Intake Total 200 200 Balance 200 200 Intake: Oral 200 200 Other: Total, Intake Amount 200 200 # Voids Void 1 1 - Exam Breasts: Present: deferred Cardiovascular: Present: Regular rate Lungs: Present: Clear to auscultation Abdomen: Present: soft Vulva: both: normal Uterus: Present: fundal height below umbilicus Extremities: Present: normal Deep Tendon Reflex Grade: Normal +2
--- NOTE | 2020-03-25 08:32 | Discharge Summary ---
Providers - Providers Date of Admission: 03/22/20 13:06 Date of discharge: 03/25/20 Attending physician: IDRIS FOLEY 03/24/20 07:59 Consult to Case Management [CONS] Routine Services Needed at Discharge: Administrative Job Titles Notified:: [phone] Phone number called:: [phone] Additional Physician Instructions: limited care Primary care physician: CRISTOFER BROWER MD Hospitalization Reason for admission: active labor Delivery: Procedure: section Episiotomy: none Laceration: none Incision: dressed Other procedures: none complications: none Discharge diagnosis: IUP at term delivered baby: female Condition at discharge: Good Disposition: DC-01 TO HOME OR SELFCARE Plan - Provider Discharge Summary Activity: routine, no sex for 6 weeks, no strenuous exercise Diet: routine Instructions: routine Additional instructions: [] Smoking cessation referral if applicable(refer to patient education folder for contact #) [] Refer to [facility] Booklet Call your doctor immediately for: * Fever > 100.5 * Heavy vaginal bleeding ( >1 pad per hour) * Severe persistent headache * Shortness of breath * Reddened, hot, painful area to leg or breast * Drainage or odor from incision. * Keep incision clean and dry at all times and follow doctor's instructions regarding bathing/showering - Follow up plan Follow up: CRISTOFER BROWER MD [Primary Care Provider] - 14 Days
[2020-03-25] MEDS ORDERED: MEASLES, MUMPS & RUBELLA 12,500 UNIT/0.5 ML VACCINE SUB-Q ONE (16:00)
[2020-03-25 16:47] VITALS: BP 126/85
== END 2020-03-25 17:15 | disposition home or self-care (01) | DRG 788 ==
LOC: TRG 13:03 → LD 13:06 → OB 03-23 23:36
PROVIDERS: ADMIT Obstetrics & Gynecology; ATTEND Obstetrics & Gynecology
PROC: 10D00Z1 Extraction of Products of Conception, Low, Open Approach (ICD-10-PCS; principal; 2020-03-23)
PROC: 3E0134Z Introduction of Serum, Toxoid and Vaccine into Subcutaneous Tissue, Percutaneous Approach (ICD-10-PCS; 2020-03-25)
DX: O64.0XX0 Obstructed labor due to incomplete rotation of fetal head, not applicable or unspecified (principal); O66.5 Attempted application of vacuum extractor and forceps; Z37.0 Single live birth; Z3A.41 41 weeks gestation of pregnancy; Z23 Encounter for immunization; O99.824 Streptococcus B carrier state complicating childbirth; O62.1 Secondary uterine inertia; O77.0 Labor and delivery complicated by meconium in amniotic fluid; O69.89X0 Labor and delivery complicated by other cord complications, not applicable or unspecified; O90.81 Anemia of the puerperium; D64.9 Anemia, unspecified
CPT/HCPCS: 36415; 80307; 82803; 85007; 85025; 86850; 86900; 86901; 87591; 88307; 90707; 96360; 96361; 96365; 96366; G0378; J0290; J0690; J1100; J1750; J1885; J2250; J2270; J2405; J2590; J2704; J2765; J3010; J3490; J7030; J7120